=== PATIENT | female | born 1995 | race African-American/Black ===

== ENCOUNTER 2020-04-29 10:26 | Emergency (ER) | payer BC ==
[~2020-04-29] VITALS: Ht 162.6 cm; Wt 117.9 kg
[2020-04-29] MEDS ORDERED: PROAIR HFA8.5 GM INH (10:34)
[2020-04-29 11:18] VITALS: BP 132/79
== END 2020-04-29 11:19 | disposition home or self-care (01) ==
LOC: M.ERS 10:26
DX: S00.452A Superficial foreign body of left ear, initial encounter (principal); W45.8XXA Other foreign body or object entering through skin, initial encounter; Y93.89 Activity, other specified; Y92.89 Other specified places as the place of occurrence of the external cause; Y99.8 Other external cause status

== ENCOUNTER 2021-01-29 18:32 | Emergency (ER) | payer BC ==
[~2021-01-29] VITALS: Ht 162.6 cm; Wt 124.7 kg
[~2021-01-29 18:32] MED LIST: PROAIR HFA8.5 GM INH
[2021-01-29] MEDS ORDERED: WELLBUTRIN 75 M75 M1 PO (18:58)
[2021-01-29] MEDS ORDERED: MEDROLDOSEPACK PO (19:54)
[2021-01-29] MEDS ORDERED: NABUMETONE 750750 M1 PO (19:54)
[2021-01-29 20:06] VITALS: BP 123/65
== END 2021-01-29 20:07 | disposition home or self-care (01) ==
LOC: M.ERS 18:32
DX: S93.402A Sprain of unspecified ligament of left ankle, initial encounter (principal); M72.2 Plantar fascial fibromatosis; F32.9 Major depressive disorder, single episode, unspecified; Z98.890 Other specified postprocedural states; Z90.89 Acquired absence of other organs; Z79.899 Other long term (current) drug therapy; Z88.1 Allergy status to other antibiotic agents; Z91.018 Allergy to other foods; Z88.8 Allergy status to other drugs, medicaments and biological substances; W01.0XXA Fall on same level from slipping, tripping and stumbling without subsequent striking against object, initial encounter; X50.1XXA Overexertion from prolonged static or awkward postures, initial encounter; Y93.B9 Activity, other involving muscle strengthening exercises; Y92.89 Other specified places as the place of occurrence of the external cause; Y99.8 Other external cause status

== ENCOUNTER 2021-01-31 13:57 | Emergency (ER) | payer BC ==
[~2021-01-31] VITALS: Ht 162.6 cm; Wt 122.5 kg
[~2021-01-31 13:57] MED LIST changes: +MEDROLDOSEPACK PO; +NABUMETONE 750750 M1 PO; +WELLBUTRIN 75 M75 M1 PO
[2021-01-31] MEDS ORDERED: IBUPROFEN 600600 M1 PO (16:13)
[2021-01-31] MEDS ORDERED: APAP W/CODEINE1 TA2 PO (16:13)
[2021-01-31 16:25] VITALS: BP 134/68
== END 2021-01-31 16:26 | disposition home or self-care (01) ==
LOC: M.ERS 13:57
DX: M79.662 Pain in left lower leg (principal); M25.572 Pain in left ankle and joints of left foot; F32.9 Major depressive disorder, single episode, unspecified; Z98.890 Other specified postprocedural states; Z90.89 Acquired absence of other organs; Z79.899 Other long term (current) drug therapy; Z88.1 Allergy status to other antibiotic agents; Z91.018 Allergy to other foods; X50.0XXA Overexertion from strenuous movement or load, initial encounter; Y93.89 Activity, other specified; Y92.89 Other specified places as the place of occurrence of the external cause; Y99.8 Other external cause status